=== PATIENT | female | born 1990 | race African-American/Black ===

== ENCOUNTER 2020-05-14 10:24 | Outpatient (REF) | payer OTHER, SELFPAY ==
[2020-05-16 19:52] LABS: TS Negative Control Passed; TS Panel A 0; TS Panel B 0; TS Positive Control Passed; TSpotTB Negative (SeeBelow)
== END 2020-05-14 10:25 | disposition home or self-care (01) ==
LOC: HO.HMGCLDS 10:24
PROVIDERS: PCP Internal Medicine; Visit Provider Internal Medicine
DX: Z01.84 Encounter for antibody response examination (principal)
CPT/HCPCS: 36415; 86481

== ENCOUNTER → 2021-01-29 10:59 | Outpatient (BNVA) | payer OTHER, SELFPAY | PROVIDERS: PCP Internal Medicine; Referring Provider Internal Medicine; Visit Provider Physician Assistant Surgical ==

== ENCOUNTER → 2021-02-06 08:13 | Outpatient (BNVA) | payer OTHER, SELFPAY | PROVIDERS: PCP Internal Medicine; Visit Provider Surgery ==

== ENCOUNTER 2021-02-08 09:58 | Outpatient (REF) | payer OTHER, SELFPAY ==
[2021-02-08 11:41] LABS: MANUAL DIFF FLAG NO
[2021-02-08 11:46] LABS: Basophils Percent Auto 0.4 % (0-2); Eosinophils Absolute Auto 0.2 X10*3/uL (0.0-0.4); Eosinophils Percent Auto 3.3 % (0-4); Hematocrit 40.8 % (37.0-47.0); Hemoglobin 13.2 g/dl (12.0-16.0); Imm Gran Abs Auto 0.01 X10*3/uL (0.00-0.03); Imm Gran Pct Auto 0.1 % (0.0-0.4); Lymphocytes Absolute Auto 2.1 X10*3/uL (1.2-4.9); Lymphocytes Percent Auto 29.7 % (20-40); Mean Corpuscular HGB Conc 32.4 g/dl (31.0-35.0); Mean Corpuscular Hemoglobin 28.4 pg (27.0-33.0); Mean Corpuscular Volume 87.7 fL (80.0-98.0); Mean Platelet Volume 10.2 fL (9.4-12.3); Monocytes Absolute Auto 0.5 X10*3/uL (0.1-1.2); Monocytes Percent Auto 7.7 % (2-11); Neutrophils Absolute Auto 4.1 x10*3/uL (2.0-8.3); Neutrophils Percent Auto 58.8 % (45-73); Platelet Count 359 X10*3/uL (160-400); Red Blood Count 4.65 X10*6/uL (4.20-5.50); Red Cell Distribution Width 12.7 % (11.0-16.0)
[2021-02-08 12:00] LABS: Alanine Aminotransferase 16 U/L (0-31); Albumin Level 4.3 g/dL (3.5-5.0); Alkaline Phosphatase 80 U/L (39-117); Anion Gap 10 (12-20); Aspartate Amino Transferase 16 U/L (5-31); Bilirubin Direct 0.2 mg/dL (0.0-0.5); Bilirubin Total 0.7 mg/dL (0.0-1.0); Blood Urea Nitrogen 6 mg/dL (9-16); Carbon Dioxide 28 mmol/L (22-29); Chloride 105 mmol/L (96-108); Estimated Glomerular Filt Rate > 60; Glucose Random 84 mg/dL (60-115); Potassium 4.3 mmol/L (3.3-5.1); Sodium 139 mmol/L (135-145); Total Protein 7.2 g/dL (6.5-8.0)
[2021-02-08 12:25] LABS: TSH reflex Free T4 0.55 uIU/mL (0.32-4.0)
[2021-02-09 14:31] LABS: LDL Cholesterol Direct 157 mg/dL (<100)
== END 2021-02-08 09:59 | disposition home or self-care (01) ==
LOC: HO.HMGCLDS 09:58
PROVIDERS: PCP Internal Medicine; Visit Provider Surgery
DX: Z00.01 Encounter for general adult medical examination with abnormal findings (principal); E66.01 Morbid (severe) obesity due to excess calories; E05.90 Thyrotoxicosis, unspecified without thyrotoxic crisis or storm; E78.00 Pure hypercholesterolemia, unspecified; R00.0 Tachycardia, unspecified
CPT/HCPCS: 36415; 80053; 82248; 83721; 84443; 85025

== ENCOUNTER 2021-02-13 09:05 | Outpatient (REF) | payer OTHER, SELFPAY ==
[2021-02-13 11:27] LABS: MANUAL DIFF FLAG NO
[2021-02-13 11:33] LABS: Basophils Percent Auto 0.2 % (0-2); Eosinophils Absolute Auto 0.1 X10*3/uL (0.0-0.4); Eosinophils Percent Auto 0.6 % (0-4); Hematocrit 40.8 % (37.0-47.0); Hemoglobin 13.3 g/dl (12.0-16.0); Imm Gran Abs Auto 0.02 X10*3/uL (0.00-0.03); Imm Gran Pct Auto 0.2 % (0.0-0.4); Lymphocytes Absolute Auto 1.9 X10*3/uL (1.2-4.9); Mean Corpuscular HGB Conc 32.6 g/dl (31.0-35.0); Mean Corpuscular Hemoglobin 28.9 pg (27.0-33.0); Mean Corpuscular Volume 88.5 fL (80.0-98.0); Mean Platelet Volume 10.1 fL (9.4-12.3); Monocytes Absolute Auto 0.7 X10*3/uL (0.1-1.2); Monocytes Percent Auto 7.3 % (2-11); Neutrophils Absolute Auto 7.2 x10*3/uL (2.0-8.3); Neutrophils Percent Auto 72.7 % (45-73); Platelet Count 381 X10*3/uL (160-400); Red Blood Count 4.61 X10*6/uL (4.20-5.50); Red Cell Distribution Width 13.1 % (11.0-16.0); White Blood Count 9.9 X10*3/uL (4.8-10.8)
[2021-02-13 11:47] LABS: Alanine Aminotransferase 17 U/L (0-31); Albumin Level 4.4 g/dL (3.5-5.0); Alkaline Phosphatase 78 U/L (39-117); Anion Gap 10 (12-20); Aspartate Amino Transferase 17 U/L (5-31); Bilirubin Total 0.8 mg/dL (0.0-1.0); Blood Urea Nitrogen 4 mg/dL (9-16); C Reactive Protein 1.41 mg/dL (< or = 0.50); Calcium 9.6 mg/dL (8.4-10.2); Carbon Dioxide 29 mmol/L (22-29); Chloride 105 mmol/L (96-108); Cholesterol 196 mg/dL; Estimated Glomerular Filt Rate > 60; Glucose Random 104 mg/dL (60-115); HDL Cholesterol 51 mg/dL; Iron 63 mcg/dL (30-160); LDL Cholesterol Calculated 131 mg/dl; Percent Iron Saturation 19 % (15-50); Potassium 4.1 mmol/L (3.3-5.1); Sodium 140 mmol/L (135-145); Total Iron Binding Capacity 324 mcg/dL (228-428); Total Protein 7.5 g/dL (6.5-8.0); Triglycerides 73 mg/dL; Unsaturated Iron Binding 261 ug/dL
[2021-02-13 11:50] LABS: Estimated Average Glucose 105 mg/dL; Hemoglobin A1c % 5.3 %
[2021-02-13 12:08] LABS: Ferritin 44 ng/mL (10-122); Insulin 15 uU/mL (2-29); TSH reflex Free T4 0.35 uIU/mL (0.32-4.0); Vitamin D 25-OH Total 21.8 ng/mL (>30)
[2021-02-13 12:21] LABS: Vitamin B12 322 pg/mL (200-900)
[2021-02-14 15:41] LABS: Calcium (PTHI) 9.6 mg/dL (8.6-10.2); PTHI 45 pg/mL (14-64)
[2021-02-16 14:01] LABS: Zinc 61 mcg/dL (60-130)
[2021-02-16 20:51] LABS: Vitamin A 34 mcg/dL (38-98)
[2021-02-18 06:12] LABS: Vitamin B1 8 nmol/L (8-30)
== END 2021-02-13 09:06 | disposition home or self-care (01) ==
LOC: HO.HMGCLDS 09:05
PROVIDERS: PCP Internal Medicine; Visit Provider Surgery
DX: E66.01 Morbid (severe) obesity due to excess calories (principal)
CPT/HCPCS: 36415; 80053; 80061; 82306; 82607; 82728; 82746; 83036; 83525; 83540; 83970; 84425; 84443; 84590; 84630; 85025; 86140

== ENCOUNTER → 2021-03-06 08:01 | Outpatient (BNVA) | payer OTHER, SELFPAY | PROVIDERS: PCP Internal Medicine; Visit Provider Surgery ==

== ENCOUNTER → 2021-03-12 08:03 | Outpatient (BNVA) | payer OTHER, SELFPAY | PROVIDERS: PCP Internal Medicine; Visit Provider Dietitian, Registered ==

== ENCOUNTER 2021-05-15 11:48 | Outpatient (REF) | payer OTHER, SELFPAY ==
[2021-05-17 16:06] LABS: TS Negative Control Passed; TS Panel A 0; TS Panel B 2; TS Positive Control Passed; TSpotTB Negative (Negative)
== END 2021-05-15 11:49 | disposition home or self-care (01) ==
LOC: HO.HMGCLDS 11:48
PROVIDERS: Visit Provider Internal Medicine
DX: Z11.1 Encounter for screening for respiratory tuberculosis (principal)
CPT/HCPCS: 36415; 86481

== ENCOUNTER 2021-11-15 13:04 | Outpatient (REF) | payer OTHER, SELFPAY ==
[2021-11-18 03:41] LABS: HBS Num1 107.91 mIU/mL (0-7.99); HBsAGNum1 0.23 S/CO (0.00-0.99); Hepatitis B Surface Antigen Negative (Negative); ~Hepatitis B Surface Antibody REACTIVE (Nonreactive)
[2021-11-18 18:11] LABS: Mumps Virus IgG Antibody <9.00 AU/mL; Rubella IgG Antibody 1.75 Index; Rubeola IgG (Measles) <13.50 AU/mL
== END 2021-11-15 13:05 | disposition home or self-care (01) ==
LOC: HO.HMGCLDS 13:04
PROVIDERS: PCP Internal Medicine; Visit Provider Internal Medicine
DX: Z01.84 Encounter for antibody response examination (principal)
CPT/HCPCS: 36415; 86706; 86735; 86762; 86765; 86787; 87340

== ENCOUNTER 2022-11-14 09:52 | Outpatient (AMB) | payer OTHER, SELFPAY ==
[2022-11-14 10:01] VITALS: BP 118/84; PULSE 90; O2SAT 98; BMI 39.5
--- NOTE | 2022-11-14 10:01 | A.OFFPC_ITS ---
Vital Signs 11/14/22 10:01 Height 5 ft 1 in Weight 209 lb 2 oz BMI 39.5 BP 118/84 Blood Pressure Location Lt brachial Position Sitting Pulse 90 Pulse Source Pulse Oximeter Pulse Oximetry (%) 98 Oxygen Delivery Method Room Air Intake Visit Reasons: Annual PE Allergies No Known Allergies Allergy (Verified 11/14/22 10:02) Medication List - Last Reconciled 11/14/22 by Yin Hayes MD escitalopram oxalate 10 mg PO DAILY 90 days Tobacco use date assessed: 11/14/22 Dental Screening Dental Screen Date: 11/14/22 Did you have a dental visit in the last 12 months?: Yes Did you have a dental problem in the last 6 months where you did not have access to dental care?: No Was dental information given to patient?: No HPI Annual PE HPI Details Patient is a 32-year-old female came in today for physical examination Patient offer no complaints today Obesity with BMI of 39.5, patient has tried weight loss program [facility] But she did not wanted to have surgery so she stopped going She also tried taking phentermine which caused tachycardia. I offered her appointment with the dietitian which she has declined today. She is still struggling with weight loss. Need OBGYN appointment Lab order placed to be done fasting Return in 2 weeks to go over labs. [facility] Medical History Depression Encounter for general adult medical examination with abnormal findings Hyperthyroidism Morbid obesity Tachycardia Surgical History History of section Family History Father Cancer Mother HTN (hypertension) Depression Maternal Grandfather No problems noted. Maternal Grandmother No problems noted. Paternal Grandfather No problems noted. Paternal Grandmother No problems noted. Brother No problems noted. Daughter No problems noted. Sister No problems noted. Sister No problems noted. Sister No problems noted. Other Mental health disorder Social History Housing: House Alcohol intake: current Alcohol intake frequency: holidays/special occasions only Patient Tobacco Use Status: Never used Tobacco e-Cigarette/Vaping Use: Never Used Second Hand Smoke Exposure: Yes Current occupational status: employed Cognitive needs: No Hearing needs: No Vision needs: Yes Questionnaire PHQ-9 Over the last 2 weeks, how often have you been bothered by any of the following problems? 1. Little interest or pleasure in doing things: several days 2. Feeling down, depressed, or hopeless: several days 3. Trouble falling or staying asleep, or sleeping too much: not at all 4. Feeling tired or having little energy: several days 5. Poor appetite or overeating: not at all 6. Feeling bad about yourself - or that you are a failure or have let yourself or your family down: not at all 7. Trouble concentrating on things, such as reading the newspaper or watching television: not at all 8. Moving or speaking so slowly that other people could have noticed. Or the opposite - being so fidgety or restless that you have been moving around a lot more than usual: several days 9. Thoughts that you would be better off or of hurting yourself in some way: not at all Total score: 4 Depression Screening Interpretation: Negative 47338 - PHQ-9 Billing: Yes Source: Developed by Drs. Mahesh Edward, Selina Nieves, Michael Santos and colleagues, with an educational desiree from [employer]. Thrive Questionnaire Date Thrive assessed: 11/14/22 I am a: Patient What is your living situation today?: I have a steady place to live Within the past 12 months, did the food you bought not last and you didn't have the money to get more?: Never true Within the past 12 months, did you worry whether your food would run out before you got money to buy more?: Never true Do you have trouble paying for medicines?: No Do you have trouble getting transportation to medical appointments?: No Do you have trouble paying your heating and electricity bill?: No Do you have trouble taking care of your child, family member or friend?: No Do you have trouble with day-to-day activities such as bathing, preparing meals, shopping, managing finances, etc.?: No Are you currently unemployed and looking for a job?: No Are you interested in more education?: No AUDIT C Alcohol Use Questionnaire (AUDIT-C) 1. How often do you have a drink containing alcohol?: 2-4 times a month 2. How many drinks containing alcohol do you have on a typical day when you are drinking?: 1 or 2 3. How often do you have six or more drinks on one occasion?: Never Total Score: 2 Score Reviewed/Action Taken: Yes RAKEL-7 AMB Questionnaire RAKEL-7 Date RAKEL - 7 assessed: 11/14/22 Feeling nervous, anxious, or on edge: 0 = Not at all Not being able to stop or control worryin = Not at all Worrying too much about different things: 0 = Not at all Trouble relaxin = Several days Being so restless that it is hard to sit still: 1 = Several days Becoming easily annoyed or irritable: 0 = Not at all Feeling afraid as if something awful might happen: 0 = Not at all Total RAKEL-7 score (0-4 normal; 5-9 mild; 10-14 moderate; 15-21 severe): 2 Source: Developed by Drs. Mahesh Edward, Selina Nieves, Michael Santos and colleagues, with an educational desiree from [employer]. RAKEL-7 Assessment Billing RAKEL-7 Assessment Tool: RAKEL-7 Assessment 19927 Review of Systems Const Denies chills, Denies fever(s) and Denies headache(s) Eyes Denies blurry vision ENT Denies headache(s), Denies nasal discharge, Denies nasal obstruction, Denies odynophagia and Denies sinus pain Card Denies chest pain at rest and Denies chest pain with activity Resp Denies cough and Denies hemoptysis GI Denies diarrhea, Denies odynophagia, Denies vomiting and Denies hematemesis Reports as per HPI Musc Denies abnormal gait Skin/Breast Reports as per HPI Neuro Denies Neuro-related abnormal movements, Denies Abnormal speech present, Denies abnormal gait, Denies headache(s) and Denies Sensory deficit (Neuro) Psych Denies mood swings and Denies paranoia Endo Reports as per HPI Jose/Lymph Reports as per HPI Aller/Immun Reports as per HPI Physical exam (Primary Care) Vital Signs: Last Vital Signs Pulse 90 11/14/22 10:01 BP 118/84 11/14/22 10:01 Pulse Ox 98 11/14/22 10:01 Oxygen Delivery Method Room Air 11/14/22 10:01 BMI result Body Mass Index 39.5 Tobacco/Smoking Status: Tobacco use Status Tobacco use date assessed 11/14/22 11/14/22 10:02 Patient Tobacco Use Status Never used Tobacco 11/14/22 10:02 e-Cigarette/Vaping Use Never Used 11/14/22 10:02 PHQ-9: PHQ-9 Score PHQ-9: Total score 4 11/14/22 10:20 Depression Screening Interpretation: Negative Thrive Assessment: Date of Thrive Assessment Date Thrive assessed 11/14/22 11/14/22 10:17 Const General: cooperative, comfortable and no acute distress Orientation/consciousness: patient oriented x3 HENMT Head: Yes normocephalic and Yes atraumatic Eyes General: appearance normal, both eyes and all related structures Pupils: Equal, round and reactive pupils present EOM: EOMs intact bilaterally Neck Neck: Yes supple and No lymphadenopathy Thyroid: Thyroid normal Lymphatic: no lymphadenopathy noted Chest Breast/axilla palpation: normal palpation of the breasts Resp Effort & Inspection: normal respiratory effort and able to speak in complete sentences Auscultation: clear to auscultation bilaterally Cardio Heart sounds: S1 normal heart sound present and S2 normal heart sound present GI Palpation (GI): Soft to palpation and nontender Auscultation: normal bowel sounds General: Yes no CVA tenderness Back/Spine/Pelvis Back: no CVA tenderness Skin General skin exam: elasticity normal and turgor normal Neuro General: patient oriented x3 and gait normal Cranial nerves: Yes Equal, round and reactive pupils present Speech: No Abnormal speech present Sensory Exam: No Sensory deficit (Neuro) Coordination: tandem gait normal and Romberg test negative Extrem General: Yes normal exam except as noted and No edema Assessment and Plan Assessment & Plan (1) Encounter for general adult medical examination with abnormal findings: Code(s): Z00.01 - Encounter for general adult medical examination with abnormal findings (2) Morbid obesity: Code(s): E66.01 - Morbid (severe) obesity due to excess calories (3) Elevated LDL cholesterol level: Code(s): E78.00 - Pure hypercholesterolemia, unspecified (4) Vitamin D deficiency: Code(s): E55.9 - Vitamin D deficiency, unspecified (5) Vitamin B12 deficiency: Code(s): E53.8 - Deficiency of other specified B group vitamins Plan Patient is a 32-year-old female came in today for physical examination Patient offer no complaints today Obesity with BMI of 39.5, patient has tried weight loss program [facility] But she did not wanted to have surgery so she stopped going She also tried taking phentermine which caused tachycardia. I offered her appointment with the dietitian which she has declined today. She is still struggling with weight loss. Need OBGYN appointment Lab order placed to be done fasting Return in 2 weeks to go over labs. Orders: Orders Comprehensive Gaffney. Panel Fast Today E53.8 - Deficiency of other specified B group vitamins, E55.9 - Vitamin D deficiency, unspecified, E66.01 - Morbid (severe) obesity due to excess calories, E78.00 - Pure hypercholesterolemia, u nspecified, Z00.01 - Encounter for general adult medical examination with abnormal findings Lipid Panel Today E53.8 - Deficiency of other specified B group vitamins, E55.9 - Vitamin D deficiency, unspecified, E66.01 - Morbid (severe) obesity due to excess calories, E78.00 - Pure hypercholesterolemia, unspecified, Z00.01 - Encounter for general adult medical examination with abnormal findings TSH reflex Free T4 Today E53.8 - Deficiency of other specified B group vitamins, E55.9 - Vitamin D deficiency, unspecified, E66.01 - Morbid (severe) obesity due to excess calories, E78.00 - Pure hypercholesterolemia, unspecified, Z00.01 - Encounter for general adult medical examination with abnormal findings Vitamin D 25-OH (D2 and D3) Today E53.8 - Deficiency of other specified B group vitamins, E55.9 - Vitamin D deficiency, unspecified, E66.01 - Morbid (severe) obesity due to excess calories, E78.00 - Pure hypercholesterolemia, unspecified, Z00.01 - Encounter for general adult medical examination with abnormal findings Complete Blood Count Auto Diff Today E53.8 - Deficiency of other specified B group vitamins, E55.9 - Vitamin D deficiency, unspecified, E66.01 - Morbid (severe) obesity due to excess calories, E78.00 - Pure hypercholesterolemia, unspecified, Z00.01 - Encounter for general adult medical examination with abnormal findings Vitamin B12 Today E53.8 - Deficiency of other specified B group vitamins Referrals RN TRANSITIONAL CARE Referral Z01.419 - Encounter for gynecological examination (general) (routine) without abnormal findings Coding Level of Care Code Est Pt Prev Care 18-39y(94342) Diagnoses Encounter for general adult medical examination with abnormal findings Z00.01 Morbid obesity E66.01 Elevated LDL cholesterol level E78.00 Vitamin D deficiency E55.9 Vitamin B12 deficiency E53.8 Additional Codes RAKEL-7 Assessment Billing - RAKEL-7 Assessment Tool: RAKEL-7 Assessment 70806 ([id number])
== END 2022-11-14 10:30 | disposition home or self-care (01) ==
PROVIDERS: PCP Internal Medicine; Visit Provider Internal Medicine
DX: Z00.01 Encounter for general adult medical examination with abnormal findings (principal); E66.01 Morbid (severe) obesity due to excess calories; E55.9 Vitamin D deficiency, unspecified; Z68.39 Body mass index [BMI] 39.0-39.9, adult; E78.00 Pure hypercholesterolemia, unspecified; E53.8 Deficiency of other specified B group vitamins
CPT/HCPCS: 99395

== ENCOUNTER 2022-11-17 08:09 | Outpatient (REF) | payer OTHER, SELFPAY ==
[2022-11-17 11:54] LABS: MANUAL DIFF FLAG NO
[2022-11-17 12:04] LABS: Basophils Percent Auto 0.4 % (0-2); Eosinophils Absolute Auto 0.3 X10*3/uL (0.0-0.4); Eosinophils Percent Auto 3.5 % (0-4); Hematocrit 38.7 % (37.0-47.0); Hemoglobin 12.5 g/dl (12.0-16.0); Imm Gran Abs Auto 0.02 X10*3/uL (0.00-0.03); Imm Gran Pct Auto 0.3 % (0.0-0.4); Lymphocytes Absolute Auto 2.2 X10*3/uL (1.2-4.9); Lymphocytes Percent Auto 30.4 % (20-40); Mean Corpuscular HGB Conc 32.3 g/dl (31.0-35.0); Mean Corpuscular Hemoglobin 28.3 pg (27.0-33.0); Mean Corpuscular Volume 87.8 fL (80.0-98.0); Monocytes Absolute Auto 0.6 X10*3/uL (0.1-1.2); Monocytes Percent Auto 8.1 % (2-11); Neutrophils Absolute Auto 4.2 x10*3/uL (2.0-8.3); Neutrophils Percent Auto 57.3 % (45-73); Platelet Count 343 X10*3/uL (160-400); Red Blood Count 4.41 X10*6/uL (4.20-5.50); Red Cell Distribution Width 12.8 % (11.0-16.0); White Blood Count 7.2 X10*3/uL (4.8-10.8)
[2022-11-17 12:58] LABS: Alanine Aminotransferase 15 U/L (0-31); Alkaline Phosphatase 64 U/L (39-117); Anion Gap 10 (12-20); Aspartate Amino Transferase 15 U/L (5-31); Bilirubin Total 0.6 mg/dL (0.0-1.0); Blood Urea Nitrogen 4 mg/dL (9-16); Calcium 9.4 mg/dL (8.4-10.2); Carbon Dioxide 25 mmol/L (22-29); Chloride 109 mmol/L (96-108); Cholesterol 192 mg/dL; Estimated Glomerular Filt Rate > 60; Glucose Fasting 92 mg/dL (60-99); HDL Cholesterol 51 mg/dL; LDL Cholesterol Calculated 129 mg/dl; Potassium 3.9 mmol/L (3.3-5.1); Sodium 140 mmol/L (135-145); TSH reflex Free T4 0.24 uIU/mL (0.32-4.0); Total Protein 7.3 g/dL (6.5-8.0); Triglycerides 60 mg/dL
[2022-11-17 13:04] LABS: Vitamin B12 340 pg/mL (200-900)
[2022-11-17 18:52] LABS: Free T4 (Free Thyroxine) 0.86 ng/dL (0.71-1.85)
[2022-11-21 14:54] LABS: Vitamin D 25-OH, D2 <4 ng/mL; Vitamin D 25-OH, D3 21 ng/mL; Vitamin D 25-OH, Total 21 ng/mL (30-100)
== END 2022-11-17 08:10 | disposition home or self-care (01) ==
LOC: HO.HMGCLDS 08:09
PROVIDERS: PCP Internal Medicine; Visit Provider Internal Medicine
DX: Z00.01 Encounter for general adult medical examination with abnormal findings (principal); E53.8 Deficiency of other specified B group vitamins; E66.01 Morbid (severe) obesity due to excess calories; E78.00 Pure hypercholesterolemia, unspecified; E55.9 Vitamin D deficiency, unspecified
CPT/HCPCS: 36415; 80053; 80061; 82306; 82607; 84439; 84443; 85025

== ENCOUNTER 2022-12-05 07:39 | Outpatient (AMB) | payer OTHER, SELFPAY ==
--- NOTE | 2022-12-05 07:37 | MHC.PC.OV ---
Intake Visit Reasons: 2 week follow up/CX 11/28/Go over labs Allergies No Known Allergies Allergy (Verified 12/05/22 07:37) Medication List - Last Reconciled 12/05/22 by Yin Hayes MD No Known Home Meds Tobacco use date assessed: 12/05/22 Dental Screening Dental Screen Date: 12/05/22 Did you have a dental visit in the last 12 months?: Yes Did you have a dental problem in the last 6 months where you did not have access to dental care?: Yes Was dental information given to patient?: Patient has dentist HPI 2 week follow up/CX 11/28/Go over labs HPI Details Patient is 32-year-old female this is a telemedicine video conference to go over labs She recently had labs done this month Her vitamin-D level is low I have sent supplement for that Her TSH level came back low as well, indicating hyperfunctioning of thyroid gland Explained the findings to patient She has appointment with [facility] however patient would like to change it to [facility]. New referral placed message sent to referral department. She continued to have excessive sweating it can also be because of hyperthyroidism Will wait until she see the dehydrator tender she has tried Drysol which did not help. [facility] Medical History Depression Encounter for general adult medical examination with abnormal findings Hyperthyroidism Morbid obesity Tachycardia Surgical History History of section Family History Father Cancer Mother HTN (hypertension) Depression Maternal Grandfather No problems noted. Maternal Grandmother No problems noted. Paternal Grandfather No problems noted. Paternal Grandmother No problems noted. Brother No problems noted. Daughter No problems noted. Sister No problems noted. Sister No problems noted. Sister No problems noted. Other Mental health disorder Social History Housing: House Alcohol intake: current Alcohol intake frequency: holidays/special occasions only Patient Tobacco Use Status: Never used Tobacco e-Cigarette/Vaping Use: Never Used Second Hand Smoke Exposure: Yes Current occupational status: employed Cognitive needs: No Hearing needs: No Vision needs: Yes Questionnaire Thrive Questionnaire Date Thrive assessed: 11/14/22 RAKEL-7 AMB Questionnaire RAKEL-7 Date RAKEL - 7 assessed: 11/14/22 Source: Developed by Drs. Mahesh Edward, Selina Nieves, Michael Santos and colleagues, with an educational desiree from [employer]. Review of Systems Const Denies chills and Denies fever(s) ENT Denies epistaxis and Denies nasal discharge Card Denies chest pain Resp Denies chest congestion, Denies cough and Denies hemoptysis GI Denies diarrhea and Denies nausea Skin/Breast Denies rash Neuro Reports no additional complaints Psych Reports no additional complaints Endo Reports no additional complaints Physical exam (Primary Care) Tobacco/Smoking Status: Tobacco use Status Tobacco use date assessed 12/05/22 12/05/22 07:38 Patient Tobacco Use Status Never used Tobacco 12/05/22 07:38 e-Cigarette/Vaping Use Never Used 12/05/22 07:38 Thrive Assessment: Date of Thrive Assessment Date Thrive assessed 11/14/22 12/05/22 07:38 Telehealth Telehealth Location of provider rendering services: practice address Location of patient: address on file Patient Identification confirmed using: Name, : Yes Telehealth method: video Patient verbally consented to treatment: Yes Patient verbally consented to billing insurance company: Yes Patient informed of any privacy concerns related to visit: Yes Minutes spent on Phone/Video with Pt.: 14 Assessment and Plan Assessment & Plan (1) Hyperthyroidism: Code(s): E05.90 - Thyrotoxicosis, unspecified without thyrotoxic crisis or storm (2) Vitamin D deficiency: Code(s): E55.9 - Vitamin D deficiency, unspecified Plan Patient is 32-year-old female this is a telemedicine video conference to go over labs She recently had labs done this month Her vitamin-D level is low I have sent supplement for that Her TSH level came back low as well, indicating hyperfunctioning of thyroid gland Explained the findings to patient She has appointment [facility] however patient would like to change it to [facility]. New referral placed message sent to referral department. She continued to have excessive sweating it can also be because of hyperthyroidism Will wait until she see the dehydrator tender she has tried Drysol which did not help. Medications: New cholecalciferol (vitamin D3) 25 mcg PO DAILY 90 caps 3RF 90 days Coding Level of Care Code Tele Est Pt Level 3 (48875) Diagnoses Hyperthyroidism E05.90 Vitamin D deficiency E55.9
== END 2022-12-05 09:50 | disposition home or self-care (01) ==
LOC: HO.HMGC 07:39
PROVIDERS: PCP Internal Medicine; Visit Provider Internal Medicine
DX: E05.90 Thyrotoxicosis, unspecified without thyrotoxic crisis or storm (principal); E55.9 Vitamin D deficiency, unspecified
CPT/HCPCS: 99213

== ENCOUNTER → 2023-02-09 10:06 | Outpatient (BNVA) | payer OTHER, SELFPAY | PROVIDERS: PCP Internal Medicine; Visit Provider Advanced Practice Midwife ==

== ENCOUNTER 2023-07-29 09:42 | Outpatient (REF) | payer OTHER, SELFPAY ==
[2023-07-29 17:52] LABS: CT PCR NOT DETECTED (Not Detect.); NG PCR NOT DETECTED (Not Detect.)
[2023-07-30 13:18] LABS: BV Int Neg Control Negative (Negative); BV Int Pos Control Positive (Positive)
[2023-08-04 06:49] LABS: HPV mRNA E6/E7 rflx Not Detected (Not Detected)
== END 2023-07-29 09:43 | disposition home or self-care (01) ==
LOC: HO.LNP 09:42
PROVIDERS: PCP Internal Medicine; Visit Provider Advanced Practice Midwife
DX: Z01.419 Encounter for gynecological examination (general) (routine) without abnormal findings (principal); Z11.51 Encounter for screening for human papillomavirus (HPV); Z20.2 Contact with and (suspected) exposure to infections with a predominantly sexual mode of transmission
CPT/HCPCS: 0353U; 87480; 87510; 87624; 87660; 88142

== ENCOUNTER 2023-07-29 09:42 | Outpatient (AMB) | payer OTHER, SELFPAY ==
--- NOTE | 2023-07-29 09:49 | MHC.OFFVIS ---
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 Intake Note: Having concerns about her IUD also had her period for 3 weeks Masking Machine Operator Required: No Information Interpreted: non-clinical & clinical Arcade Game Technician: Arcade Game Technician Present (Robin) Allergies No Known Allergies Allergy (Verified 07/29/23 09:52) Medication List - Last Reconciled 07/29/23 by Ana Luisa Mcknight CNM cholecalciferol (vitamin D3) 25 mcg PO DAILY 90 days levonorgestrel (Liletta) intrauterine Is last menstrual period known: Yes Last menstrual period: 07/06/23 Post menopausal: No HPI HPI 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 She had a hematoma after the but it is much better now it was abdominal. She has always gotten periods with the Liletta but in July she got unusual bleeding that lasted 3 weeks and some pelvic cramping and she was a little bit bloated. She needs Liletta for control she will want it replaced when it is due to be replaced she also wants to get checked for STDs. She is working on weight loss trying to eat healthier. [facility] Medical History Depression Morbid obesity Hyperthyroidism Tachycardia Encounter for general adult medical examination with abnormal findings Surgical History History of section Family History Father Cancer Mother HTN (hypertension) Depression Maternal Grandfather No problems noted. Maternal Grandmother No problems noted. Paternal Grandfather No problems noted. Paternal Grandmother No problems noted. Brother No problems noted. Daughter No problems noted. Sister No problems noted. Sister No problems noted. Sister No problems noted. Other Mental health disorder Social History Housing: House Alcohol intake: current Alcohol intake frequency: holidays/special occasions only Patient Tobacco Use Status: Never used Tobacco e-Cigarette/Vaping Use: Never Used Second Hand Smoke Exposure: Yes Current occupational status: employed Cognitive needs: No Hearing needs: No Vision needs: Yes Female Reproductive History Menstrual Age of Menarche: 12 Duration of menses: 8-10 days Date of last menstrual period: 07/06/23 control method: progestin IUCD Total pregnancies: 4 Full term: 2 Number of Living Children: 2 Ab induced: 2 History of abnormal pap smear: No Physical Exam Vital Signs: Last Vital Signs BP 110/74 07/29/23 09:50 BMI result Body Mass Index 42.5 Const General: healthy appearing, comfortable, no acute distress, well developed and alert Nutritional Appearance: average body habitus Orientation/consciousness: patient oriented x3 Limitations: no limitations HEENT Head: Yes normocephalic Neck Neck: Yes normal visual inspection Chest Chest palpation & inspection: normal inspection of the chest Breast/axilla inspection: normal inspection of the breasts and normal inspection of the axillae Breast/axilla palpation: normal palpation of the breasts and normal palpation of the axillae Resp Effort & Inspection: normal respiratory effort GI Inspection: Yes normal to inspection, No Abdominal wall edema and No distended Palpation (GI): Soft to palpation and nontender General: Yes bladder normal to palpation External Female Exam: normal external appearance and normal appearance of the urethra Speculum Exam - Vagina: normal appearance of the vagina, normal palpation and normal vaginal discharge Speculum Exam - Cervix: normal appearance of the cervix, normal palpation and nontender Bimanual exam- vagina & uterus: normal bimanual exam, normal palpation, uterine size normal, bladder normal to palpation, consistency normal, normal palpation, uterine mobility normal, uterine shape normal, No Cervical tenderness present, non-tender and no cervical motion tenderness Bimanual Exam- Adnexa, other: normal adnexae, no masses, normal and No adnexal tenderness Neuro General: patient oriented x3 Assessment & Plan Assessment & Plan (1) Morbid obesity: Code(s): E66.01 - Morbid (severe) obesity due to excess calories Category: Medical (2) Encounter for routine gynecological examination: Code(s): Z01.419 - Encounter for gynecological examination (general) (routine) without abnormal findings Category: Medical (3) Pelvic cramping: Code(s): R10.2 - Pelvic and perineal pain Category: Medical (4) Breakthrough bleeding associated with intrauterine device (IUD): Comment: has Liletta IUD she thinks was inserted March 2019 at [facility], . Code(s): N92.1 - Excessive and frequent menstruation with irregular cycle; Z97.5 - Presence of (intrauterine) contraceptive device Category: Medical (5) Cervical cancer screening: Code(s): Z12.4 - Encounter for screening for malignant neoplasm of cervix Category: Medical (6) Encounter for screening examination for sexually transmitted disease: Code(s): Z11.3 - Encounter for screening for infections with a predominantly sexual mode of transmission Category: Medical Plan -----Discussed in this visit the following: healthy balanced diet, regular and consistent exercise, getting recommended health screens, doing the best she can for her particular health concerns, kegel exercises, pap smear screening and followup recommendations, mammography screening and SBE, normal changes in cycles in her life stage--- . Reviewed the length of time the Liletta and Mirena are usually used for control and for other purposes reviewed the possibility that her irregular bleeding might be related to weight gain as she is being a lot of weight in the years since before having children. Reviewed that it can stay in possibly longer than 5 years but if she is very concerned about control replacing it in 5 years is fine. Because of her unusual bleeding pattern and the cramping we will schedule a pelvic ultrasound and she and I can review it after word it can be by telephone if everything is okay but been if everything is okay we plan on replacement with menses around the time it is due to be replaced if there is a problem with the placement of the IUD we will remove it earlier. And replace with Mirena Orders: Orders Hepatitis C Antibody Today Z11.3 - Encounter for screening for infections with a predominantly sexual mode of transmission HIV Ab/Ag Today Z11.3 - Encounter for screening for infections with a predominantly sexual mode of transmission Syphilis Screen Today Z11.3 - Encounter for screening for infections with a predominantly sexual mode of transmission US pelvic and transvaginal Today E66.01 - Morbid (severe) obesity due to excess calories, N92.1 - Excessive and frequent menstruation with irregular cycle, R10.2 - Pelvic and perineal pain, Z01.419 - Encounter for gynecological examination (general) (routine) without abnormal findings, Z11.3 - Encounter for screening for infections with a predominantly sexual mode of transmission, Z12.4 - Encounter for screening for malignant neoplasm of cervix, Z97.5 - Presence of (intrauterine) contraceptive device Hepatitis B Surface Antigen Today Z11.3 - Encounter for screening for infections with a predominantly sexual mode of transmission Coding Level of Care Code New Pt Prev Care 18-39yr([id number] Diagnoses Morbid obesity E66.01 Encounter for routine gynecological examination Z01.419 Pelvic cramping R10.2 Breakthrough bleeding associated with intrauterine device (IUD) N92.1; Z97.5 Cervical cancer screening Z12.4 Encounter for screening examination for sexually transmitted disease Z11.3
[2023-07-29 09:50] VITALS: BP 110/74; BMI 42.5
== END 2023-07-29 11:00 | disposition home or self-care (01) ==
PROVIDERS: PCP Internal Medicine; Visit Provider Advanced Practice Midwife
DX: Z01.419 Encounter for gynecological examination (general) (routine) without abnormal findings (principal); E66.01 Morbid (severe) obesity due to excess calories; R10.2 Pelvic and perineal pain; N92.1 Excessive and frequent menstruation with irregular cycle; Z97.5 Presence of (intrauterine) contraceptive device; Z12.4 Encounter for screening for malignant neoplasm of cervix; Z11.3 Encounter for screening for infections with a predominantly sexual mode of transmission
CPT/HCPCS: 99385

== ENCOUNTER 2023-12-23 13:45 | Outpatient (AMB) | payer OTHER, SELFPAY ==
[2023-12-23 13:49] VITALS: BP 128/86; PULSE 95; O2SAT 98; BMI 43.3
--- NOTE | 2023-12-23 13:49 | A.OFFPC_ITS ---
Vital Signs 12/23/23 13:49 Height 5 ft 1 in Weight 229 lb 2 oz BMI 43.3 BP 128/86 Blood Pressure Location Lt brachial Position Sitting Pulse 95 Pulse Source Pulse Oximeter Pulse Oximetry (%) 98 Oxygen Delivery Method Room Air Intake Visit Reasons: PE Allergies No Known Allergies Allergy (Verified 12/23/23 13:51) Medication List - Last Reconciled 12/23/23 by Yin Hayes MD levonorgestrel (Liletta) intrauterine Tobacco use date assessed: 12/23/23 Dental Screening Dental Screen Date: 12/23/23 Did you have a dental visit in the last 12 months?: Yes Did you have a dental problem in the last 6 months where you did not have access to dental care?: No Was dental information given to patient?: Patient has dentist HPI PE HPI Details Patient is a 33-year-old female came in for physical examination She is established with OBGYN for gynecological care Having difficulty losing weight, BMI is elevated Complaining of pain right heel, x-ray ordered to rule out heel spur patient would like to have a referral to foot doctor Lab order placed to be done fasting [facility] Medical History Depression Morbid obesity Hyperthyroidism Tachycardia Encounter for general adult medical examination with abnormal findings Surgical History History of section Family History Father Cancer Mother HTN (hypertension) Depression Maternal Grandfather No problems noted. Maternal Grandmother No problems noted. Paternal Grandfather No problems noted. Paternal Grandmother No problems noted. Brother No problems noted. Daughter No problems noted. Sister No problems noted. Sister No problems noted. Sister No problems noted. Other Mental health disorder Social History Housing: House Alcohol intake: current Alcohol intake frequency: holidays/special occasions only Patient Tobacco Use Status: Never used Tobacco e-Cigarette/Vaping Use: Never Used Second Hand Smoke Exposure: Yes Current occupational status: employed Cognitive needs: No Hearing needs: No Vision needs: Yes Female Reproductive History Menstrual Age of Menarche: 12 Questionnaire PHQ-9 Over the last 2 weeks, how often have you been bothered by any of the following problems? 1. Little interest or pleasure in doing things: several days 2. Feeling down, depressed, or hopeless: several days 3. Trouble falling or staying asleep, or sleeping too much: not at all 4. Feeling tired or having little energy: several days 5. Poor appetite or overeating: not at all 6. Feeling bad about yourself - or that you are a failure or have let yourself or your family down: not at all 7. Trouble concentrating on things, such as reading the newspaper or watching television: not at all 8. Moving or speaking so slowly that other people could have noticed. Or the opposite - being so fidgety or restless that you have been moving around a lot more than usual: several days 9. Thoughts that you would be better off or of hurting yourself in some way: not at all Total score: 4 Depression Screening Interpretation: Negative Depression Screening Done: Yes 78466 - PHQ-9 Billing: Yes Source: Developed by Drs. Mahesh Edward, Selina Nieves, Michael Santos and colleagues, with an educational desiree from [employer]. Thrive Questionnaire Date Thrive assessed: 12/23/23 I am a: Patient What is your living situation today?: I choose not to answer this question Within the past 12 months, did the food you bought not last and you didn't have the money to get more?: I choose not to answer this question Within the past 12 months, did you worry whether your food would run out before you got money to buy more?: I choose not to answer this question Do you have trouble paying for medicines?: I choose not to answer this question Do you have trouble getting transportation to medical appointments?: I choose not to answer this question Do you have trouble paying your heating and electricity bill?: I choose not to answer this question Do you have trouble taking care of your child, family member or friend?: I choose not to answer this question Do you have trouble with day-to-day activities such as bathing, preparing meals, shopping, managing finances, etc.?: I choose not to answer this question Are you interested in more education?: I choose not to answer this question Please select the resources that you would like help with: None Currently or been in a relationship where the following occur: I choose not to answer THRIVE Score: 0 AUDIT C Alcohol Use Questionnaire (AUDIT-C) 1. How often do you have a drink containing alcohol?: Monthly or less 2. How many drinks containing alcohol do you have on a typical day when you are drinking?: 1 or 2 3. How often do you have six or more drinks on one occasion?: Never Total Score: 1 Score Reviewed/Action Taken: Yes RAKEL-7 AMB Questionnaire RAKEL-7 Date RAKEL - 7 assessed: 12/23/23 Feeling nervous, anxious, or on edge: 0 = Not at all Not being able to stop or control worryin = Not at all Worrying too much about different things: 0 = Not at all Trouble relaxin = Not at all Being so restless that it is hard to sit still: 0 = Not at all Becoming easily annoyed or irritable: 0 = Not at all Feeling afraid as if something awful might happen: 0 = Not at all Total RAKEL-7 score (0-4 normal; 5-9 mild; 10-14 moderate; 15-21 severe): 0 Source: Developed by Drs. Mahesh Edward, Selina Nieves, Michael Santos and colleagues, with an educational desiree from [employer]. RAKEL-7 Assessment Billing RAKEL-7 Assessment Tool: RAKEL-7 Assessment 49567 Review of Systems Const Denies chills, Denies fever(s) and Denies headache(s) Eyes Denies blurry vision ENT Denies headache(s), Denies nasal discharge, Denies nasal obstruction, Denies odynophagia and Denies sinus pain Card Denies chest pain at rest and Denies chest pain with activity Resp Denies cough and Denies hemoptysis GI Denies diarrhea, Denies odynophagia, Denies vomiting and Denies hematemesis Reports as per HPI Musc Denies abnormal gait Skin/Breast Reports as per HPI Neuro Denies Neuro-related abnormal movements, Denies Abnormal speech present, Denies abnormal gait, Denies headache(s) and Denies Sensory deficit (Neuro) Psych Denies mood swings and Denies paranoia Endo Reports as per HPI Jose/Lymph Reports as per HPI Aller/Immun Reports as per HPI Physical exam (Primary Care) Vital Signs: Last Vital Signs Pulse 95 09/18/24 13:49 BP 128/86 12/23/23 13:49 Pulse Ox 98 12/23/23 13:49 Oxygen Delivery Method Room Air 12/23/23 13:49 BMI result Body Mass Index 43.3 Tobacco/Smoking Status: Tobacco use Status Tobacco use date assessed 12/23/23 12/23/23 13:52 Patient Tobacco Use Status Never used Tobacco 12/23/23 13:52 e-Cigarette/Vaping Use Never Used 12/23/23 13:52 PHQ-9: PHQ-9 Score PHQ-9: Total score 4 12/23/23 14:09 Depression Screening Interpretation: Negative Thrive Assessment: Date of Thrive Assessment Date Thrive assessed 12/23/23 12/23/23 13:52 Currently or been in a relationship where the following occur: I choose not to answer Const General: cooperative, comfortable and no acute distress Orientation/consciousness: patient oriented x3 HENMT Head: Yes normocephalic and Yes atraumatic Eyes General: appearance normal, both eyes and all related structures Pupils: Equal, round and reactive pupils present EOM: EOMs intact bilaterally Neck Neck: Yes supple and No lymphadenopathy Thyroid: Thyroid normal Lymphatic: no lymphadenopathy noted Resp Effort & Inspection: normal respiratory effort and able to speak in complete sentences Auscultation: clear to auscultation bilaterally Cardio Heart sounds: S1 normal heart sound present and S2 normal heart sound present GI Palpation (GI): Soft to palpation and nontender Auscultation: normal bowel sounds General: Yes no CVA tenderness Back/Spine/Pelvis Back: no CVA tenderness Skin General skin exam: elasticity normal and turgor normal Neuro General: patient oriented x3 and gait normal Cranial nerves: Yes Equal, round and reactive pupils present Speech: No Abnormal speech present Sensory Exam: No Sensory deficit (Neuro) Coordination: tandem gait normal and Romberg test negative Extrem General: Yes normal exam except as noted and No edema Assessment and Plan Assessment & Plan (1) Encounter for general adult medical examination with abnormal findings: Code(s): Z00.01 - Encounter for general adult medical examination with abnormal findings (2) Pain of right heel: Code(s): M79.671 - Pain in right foot (3) Morbid obesity: Code(s): E66.01 - Morbid (severe) obesity due to excess calories (4) Vitamin D deficiency: Code(s): E55.9 - Vitamin D deficiency, unspecified (5) Vitamin B12 deficiency: Code(s): E53.8 - Deficiency of other specified B group vitamins Plan Patient is a 33-year-old female came in for physical examination She is established with OBGYN for gynecological care Having difficulty losing weight, BMI is elevated Complaining of pain right heel, x-ray ordered to rule out heel spur patient would like to have a referral to foot doctor Lab order placed to be done fasting Orders: Orders Complete Blood Count Auto Diff Today E53.8 - Deficiency of other specified B group vitamins, E55.9 - Vitamin D deficiency, unspecified, E66.01 - Morbid (severe) obesity due to excess calories, M79.671 - Pain in right foot, Z00.01 - Encounter for general adult medical examination with abnormal findings Comprehensive [place]. Panel Fast Today E53.8 - Deficiency of other specified B group vitamins, E55.9 - Vitamin D deficiency, unspecified, E66.01 - Morbid (severe) obesity due to excess calories, M79.671 - Pain in right foot, Z00.01 - Encounter for general adult medical examination with abnormal findings TSH reflex Free T4 Today E53.8 - Deficiency of other specified B group vitamins, E55.9 - Vitamin D deficiency, unspecified, E66.01 - Morbid (severe) obesity due to excess calories, M79.671 - Pain in right foot, Z00.01 - Encounter for general adult medical examination with abnormal findings XR foot RT 2V Today M79.671 - Pain in right foot Lipid Panel Today E53.8 - Deficiency of other specified B group vitamins, E55.9 - Vitamin D deficiency, unspecified, E66.01 - Morbid (severe) obesity due to excess calories, M79.671 - Pain in right foot, Z00.01 - Encounter for general adult medical examination with abnormal findings UA CC w/rflx Micro + Cult Today E53.8 - Deficiency of other specified B group vitamins, E55.9 - Vitamin D deficiency, unspecified, E66.01 - Morbid (severe) obesity due to excess calories, M79.671 - Pain in right foot, Z00.01 - Encounter for general adult medical examination with abnormal findings Referrals Podiatry Referral M79.671 - Pain in right foot Coding Level of Care Code Est Pt Level 3 (30201) Est Pt Prev Care 18-39y(24979) Diagnoses Encounter for general adult medical examination with abnormal findings Z00.01 Pain of right heel M79.671 Morbid obesity E66.01 Vitamin D deficiency E55.9 Vitamin B12 deficiency E53.8 Additional Codes RAKEL-7 Assessment Billing - RAKEL-7 Assessment Tool: RAKEL-7 Assessment 37856 ([id number])
== END 2023-12-23 14:11 | disposition home or self-care (01) ==
PROVIDERS: PCP Internal Medicine; Visit Provider Internal Medicine
DX: Z00.01 Encounter for general adult medical examination with abnormal findings (principal); M79.671 Pain in right foot; E66.01 Morbid (severe) obesity due to excess calories; Z68.41 Body mass index [BMI] 40.0-44.9, adult; E55.9 Vitamin D deficiency, unspecified; E53.8 Deficiency of other specified B group vitamins

== ENCOUNTER → 2023-12-23 13:45 | Outpatient (BNVA) | payer OTHER, SELFPAY | PROVIDERS: PCP Internal Medicine; Visit Provider Internal Medicine | DX: Z00.01 Encounter for general adult medical examination with abnormal findings (principal); M79.671 Pain in right foot; E66.01 Morbid (severe) obesity due to excess calories; Z68.41 Body mass index [BMI] 40.0-44.9, adult; E55.9 Vitamin D deficiency, unspecified; E53.8 Deficiency of other specified B group vitamins | CPT/HCPCS: 96127 ==

== ENCOUNTER 2024-02-11 08:31 | Outpatient (AMB) | payer OTHER, SELFPAY ==
--- NOTE | 2024-02-11 09:05 | A.OFFPC_ITS ---
Intake Visit Reasons: talk about weight loss medication Allergies No Known Allergies Allergy (Verified 12/23/23 13:51) Medication List - Last Reconciled 02/11/24 by Yin Hayes MD levonorgestrel (Liletta) intrauterine Tobacco use date assessed: 12/23/23 Dental Screening Dental Screen Date: 12/23/23 HPI talk about weight loss medication HPI Details 33-year-old female who wanted to talk ab out semaglutide injection for weight loss Side effect of medication discussed with the patient I have sent script, patient was notified that it may not be covered If it is covered and she is able to pick it up she will book an appointment And come into the office so we can teach her how to administer She also has not done labs yet, reminded patient to do them [facility] Medical History Depression Morbid obesity Hyperthyroidism Tachycardia Encounter for general adult medical examination with abnormal findings Surgical History History of section Family History Father Cancer Mother HTN (hypertension) Depression Maternal Grandfather No problems noted. Maternal Grandmother No problems noted. Paternal Grandfather No problems noted. Paternal Grandmother No problems noted. Brother No problems noted. Daughter No problems noted. Sister No problems noted. Sister No problems noted. Sister No problems noted. Other Mental health disorder Social History Housing: House Alcohol intake: current Alcohol intake frequency: holidays/special occasions only Patient Tobacco Use Status: Never used Tobacco e-Cigarette/Vaping Use: Never Used Second Hand Smoke Exposure: Yes Current occupational status: employed Cognitive needs: No Hearing needs: No Vision needs: Yes Female Reproductive History Menstrual Age of Menarche: 12 Questionnaire Thrive Questionnaire Date Thrive assessed: 12/23/23 RAKEL-7 AMB Questionnaire RAKEL-7 Date RAKEL - 7 assessed: 12/23/23 Source: Developed by Drs. Mahesh Edward, Seilna Nieves, Michael Santos and colleagues, with an educational desiree from [employer]. Review of Systems Const Denies chills and Denies fever(s) ENT Denies epistaxis and Denies nasal discharge Card Denies chest pain Resp Denies chest congestion, Denies cough and Denies hemoptysis GI Denies diarrhea and Denies nausea Skin/Breast Denies rash Neuro Reports no additional complaints Psych Reports no additional complaints Endo Reports no additional complaints Physical exam (Primary Care) Tobacco/Smoking Status: Tobacco use Status Tobacco use date assessed 12/23/23 02/11/24 09:06 Patient Tobacco Use Status Never used Tobacco 02/11/24 09:06 e-Cigarette/Vaping Use Never Used 02/11/24 09:06 Thrive Assessment: Date of Thrive Assessment Date Thrive assessed 12/23/23 02/11/24 09:06 Telehealth Telehealth Telehealth Platform: [employer] Location of provider rendering services: practice address Location of patient: address on file Patient Identification confirmed using: Name, : Yes Telehealth method: voice only Patient verbally consented to treatment: Yes Patient verbally consented to billing insurance company: Yes Patient informed of any privacy concerns related to visit: Yes Minutes spent on Phone/Video with Pt.: 13 Coding Level of Care Code Tele Est Pt Level 3 (57080) Diagnoses Morbid obesity E66.01 Assessment & Plan Assessment & Plan (1) Morbid obesity: Code(s): E66.01 - Morbid (severe) obesity due to excess calories Category: Medical Plan 33-year-old female who wanted to talk about semaglutide injection for weight loss Side effect of medication discussed with the patient I have sent script, patient was notified that it may not be covered If it is covered and she is able to pick it up she will book an appointment And come into the office so we can teach her how to administer She also has not done labs yet, reminded patient to do them Medications: New semaglutide (weight loss) (Wegovy) administer weeks 1 through 4 of therapy 0.25 mg (0.5 mL) subcut QWEEK 2 mL 0RF E66.01 - Morbid (severe) obesity due to excess calories, R00.0 - Tachycardia, unspecified
== END 2024-02-11 12:05 | disposition home or self-care (01) ==
LOC: HO.HMCC 08:31
PROVIDERS: PCP Internal Medicine; Visit Provider Internal Medicine
DX: E66.01 Morbid (severe) obesity due to excess calories (principal)

== ENCOUNTER 2024-02-11 08:31 | Outpatient (REF) | payer OTHER, SELFPAY ==
[2024-02-11 13:20] LABS: Appearance Urine Clear; Color Urine Yellow; Glucose Urine UA Negative (Negative); Leukocyte Esterase Urine Negative (Negative); Nitrite Urine Negative (Negative); PH 6.5 (5.0-9.0); Urine Blood Negative (Negative); Urine Ketones Trace mg/dL (Negative); Urine Protein Negative (Neg-Trace)
[2024-02-11 13:29] LABS: MANUAL DIFF FLAG NO
[2024-02-11 13:35] LABS: Basophils Percent Auto 0.5 % (0-2); Eosinophils Absolute Auto 1.3 X10*3/uL (0.0-0.4); Eosinophils Percent Auto 16.4 % (0-4); Hematocrit 39.2 % (37.0-47.0); Hemoglobin 12.8 g/dl (12.0-16.0); Imm Gran Abs Auto 0.02 X10*3/uL (0.00-0.03); Imm Gran Pct Auto 0.2 % (0.0-0.4); Lymphocytes Absolute Auto 2.2 X10*3/uL (1.2-4.9); Lymphocytes Percent Auto 27.7 % (20-40); Mean Corpuscular HGB Conc 32.7 g/dl (31.0-35.0); Mean Corpuscular Hemoglobin 28.5 pg (27.0-33.0); Mean Corpuscular Volume 87.3 fL (80.0-98.0); Mean Platelet Volume 9.9 fL (9.4-12.3); Monocytes Absolute Auto 0.7 X10*3/uL (0.1-1.2); Monocytes Percent Auto 8.3 % (2-11); Neutrophils Absolute Auto 3.8 x10*3/uL (2.0-8.3); Neutrophils Percent Auto 46.9 % (45-73); Platelet Count 396 X10*3/uL (160-400); Red Blood Count 4.49 X10*6/uL (4.20-5.50); Red Cell Distribution Width 13.5 % (11.0-16.0); White Blood Count 8.1 X10*3/uL (4.8-10.8)
[2024-02-11 14:04] LABS: Alanine Aminotransferase 14 U/L (0-31); Albumin Level 4.1 g/dL (3.5-5.0); Alkaline Phosphatase 74 U/L (39-117); Anion Gap 11 (12-20); Aspartate Amino Transferase 24 U/L (5-31); Bilirubin Total 0.7 mg/dL (0.0-1.0); Blood Urea Nitrogen 4 mg/dL (9-16); Calcium 9.5 mg/dL (8.4-10.2); Carbon Dioxide 25 mmol/L (22-29); Chloride 106 mmol/L (96-108); Cholesterol 222 mg/dL (<200); Estimated Glomerular Filt Rate > 60; Glucose Fasting 93 mg/dL (60-99); HDL Cholesterol 62 mg/dL (>40); LDL Cholesterol Calculated 147 mg/dL (<100); Potassium 3.9 mmol/L (3.3-5.1); Sodium 138 mmol/L (135-145); Total Protein 7.7 g/dL (6.5-8.0); Triglycerides 66 mg/dL (<150)
[2024-02-11 14:17] LABS: TSH reflex Free T4 0.51 uIU/mL (0.32-4.0)
== END 2024-02-11 08:32 | disposition home or self-care (01) ==
LOC: HO.HMGCLDS 08:31
PROVIDERS: PCP Internal Medicine; Visit Provider Internal Medicine
DX: Z00.01 Encounter for general adult medical examination with abnormal findings (principal); E66.01 Morbid (severe) obesity due to excess calories; E55.9 Vitamin D deficiency, unspecified; E53.8 Deficiency of other specified B group vitamins; M79.671 Pain in right foot; E05.90 Thyrotoxicosis, unspecified without thyrotoxic crisis or storm
CPT/HCPCS: 36415; 80053; 80061; 81003; 84443; 85025

== ENCOUNTER 2024-02-17 11:45 | Outpatient (AMB) | payer OTHER, SELFPAY ==
[2024-02-17 11:49] VITALS: BP 118/74; PULSE 100; O2SAT 100; BMI 42.5
--- NOTE | 2024-02-17 11:49 | MHC.PC.OV ---
Vital Signs 02/17/24 11:49 Height 5 ft 1 in Weight 225 lb BMI 42.5 BP 118/74 Blood Pressure Location Rt brachial Position Sitting Pulse 100 Pulse Source Pulse Oximeter Pulse Oximetry (%) 100 Oxygen Delivery Method Room Air Intake Visit Reasons: Weight med visit Allergies phentermine Adverse Reaction (Intermediate, Verified 02/17/24 11:58) Palpitations Medication List - Last Reconciled 02/17/24 by Yin Hayes MD levonorgestrel (Liletta) intrauterine semaglutide (weight loss) (Wegovy) 0.25 mg (0.5 mL) subcut QWEEK Tobacco use date assessed: 02/17/24 Dental Screening Dental Screen Date: 12/23/23 HPI Weight med visit HPI Details Patient is a 33-year-old female with BMI of 42 wanted to be started on Wegovy injections Came today to go over labs Lab values reviewed with the patient Vitamin-D level is low I have sent supplement for that Wegovy was not approved by her insurance and requires prior authorization We are looking into it Patient has tried phentermine in the past and could not tolerate because of palpitations Further management after the approval off medication [facility] Medical History Depression Morbid obesity Hyperthyroidism Tachycardia Encounter for general adult medical examination with abnormal findings Surgical History History of section Family History Father Cancer Mother HTN (hypertension) Depression Maternal Grandfather No problems noted. Maternal Grandmother No problems noted. Paternal Grandfather No problems noted. Paternal Grandmother No problems noted. Brother No problems noted. Daughter No problems noted. Sister No problems noted. Sister No problems noted. Sister No problems noted. Other Mental health disorder Social History Housing: House Alcohol intake: current Alcohol intake frequency: holidays/special occasions only Patient Tobacco Use Status: Never used Tobacco e-Cigarette/Vaping Use: Never Used Second Hand Smoke Exposure: Yes Current occupational status: employed Cognitive needs: No Hearing needs: No Vision needs: Yes Female Reproductive History Menstrual Age of Menarche: 12 Questionnaire PHQ-9 Over the last 2 weeks, how often have you been bothered by any of the following problems? 1. Little interest or pleasure in doing things: not at all Source: Developed by Drs. Mahesh Edward, Selina Nieves, Michael Santos and colleagues, with an educational desiree from [employer]. Thrive Questionnaire Date Thrive assessed: 12/23/23 I am a: Patient What is your living situation today?: I choose not to answer this question Within the past 12 months, did the food you bought not last and you didn't have the money to get more?: I choose not to answer this question Within the past 12 months, did you worry whether your food would run out before you got money to buy more?: I choose not to answer this question Do you have trouble paying for medicines?: I choose not to answer this question Do you have trouble getting transportation to medical appointments?: I choose not to answer this question Do you have trouble paying your heating and electricity bill?: I choose not to answer this question Do you have trouble taking care of your child, family member or friend?: I choose not to answer this question Do you have trouble with day-to-day activities such as bathing, preparing meals, shopping, managing finances, etc.?: I choose not to answer this question Are you currently unemployed and looking for a job?: No Are you interested in more education?: I choose not to answer this question Please select the resources that you would like help with: None Currently or been in a relationship where the following occur: I choose not to answer THRIVE Score: 0 RAKEL-7 AMB Questionnaire RAKEL-7 Date RAKEL - 7 assessed: 12/23/23 Source: Developed by Drs. Mahesh Edward, Selina Nieves, Michael Santos and colleagues, with an educational desiree from [employer]. Review of Systems Const Denies chills and Denies fever(s) ENT Denies epistaxis and Denies nasal discharge Card Denies chest pain Resp Denies chest congestion, Denies cough and Denies hemoptysis GI Denies diarrhea and Denies nausea Skin/Breast Denies rash Neuro Reports no additional complaints Psych Reports no additional complaints Endo Reports no additional complaints Physical exam (Primary Care) Vital Signs: Last Vital Signs Pulse 100 02/17/24 11:49 BP 118/74 02/17/24 11:49 Pulse Ox 100 02/17/24 11:49 Oxygen Delivery Method Room Air 02/17/24 11:49 BMI result Body Mass Index 42.5 Tobacco/Smoking Status: Tobacco use Status Tobacco use date assessed 02/17/24 02/17/24 11:54 Patient Tobacco Use Status Never used Tobacco 02/17/24 11:54 e-Cigarette/Vaping Use Never Used 02/17/24 11:54 Thrive Assessment: Date of Thrive Assessment Date Thrive assessed 12/23/23 02/17/24 11:54 Currently or been in a relationship where the following occur: I choose not to answer Const General: cooperative, comfortable and no acute distress Orientation/consciousness: patient oriented x3 HENMT Head: Yes normocephalic Eyes General: appearance normal, both eyes and all related structures Neck Neck: Yes supple Resp Effort & Inspection: normal respiratory effort, no cough and no stridor Cardio Rhythm: regular rhythm Heart sounds: S1 normal heart sound present and S2 normal heart sound present Skin General skin exam: turgor normal Neuro General: patient oriented x3, tone normal and moves all extremities Extrem Right lower extremity: no edema Left lower extremity: no edema Coding Level of Care Code Est Pt Level 3 (40592) Diagnoses Morbid obesity E66.01 Vitamin D deficiency E55.9 Assessment & Plan Assessment & Plan (1) Morbid obesity: Code(s): E66.01 - Morbid (severe) obesity due to excess calories Category: Medical (2) Vitamin D deficiency: Code(s): E55.9 - Vitamin D deficiency, unspecified Category: Medical Plan Patient is a 33-year-old female with BMI of 42 wanted to be started on Wegovy injections Came today to go over labs Lab values reviewed with the patient Vitamin-D level is low I have sent supplement for that Wegovy was not approved by her insurance and requires prior authorization We are looking into it Patient has tried phentermine in the past and could not tolerate because of palpitations Further management after the approval off medication Medications: New cholecalciferol (vitamin D3) 25 mcg PO DAILY 90 caps 1RF 90 days
== END 2024-02-17 15:47 | disposition home or self-care (01) ==
PROVIDERS: PCP Internal Medicine; Visit Provider Internal Medicine
DX: E55.9 Vitamin D deficiency, unspecified (principal); E66.01 Morbid (severe) obesity due to excess calories; Z68.41 Body mass index [BMI] 40.0-44.9, adult

== ENCOUNTER → 2024-02-17 11:45 | Outpatient (BNVA) | payer OTHER, SELFPAY | PROVIDERS: PCP Internal Medicine; Visit Provider Internal Medicine ==

== ENCOUNTER 2024-05-07 09:14 | Outpatient (AMB) | payer OTHER, SELFPAY ==
[2024-05-07 09:21] VITALS: BP 118/70; PULSE 78; TEMP 36.9; O2SAT 98; BMI 42.5
--- NOTE | 2024-05-07 09:21 | AM.OFFWIN_ITS ---
Intake Vital Signs 05/07/24 09:21 Height 5 ft 1 in Weight 225 lb BMI 42.5 BP 118/70 Blood Pressure Location Lt brachial Position Sitting Pulse 78 Pulse Source Pulse Oximeter Temp 98.5 F Temp Source Oral Pulse Oximetry (%) 98 Intake Visit Reasons: EP-HINES, ear clog several days Intake Note: pt is here for bilat ears blocked Patient Tobacco Use Status: Never used Tobacco Allergies phentermine Adverse Reaction (Intermediate, Verified 05/07/24 09:29) Palpitations Medication List - Last Reconciled 05/07/24 by Jasmyn Abernathy, [facility]- cholecalciferol (vitamin D3) 25 mcg PO DAILY 90 days levonorgestrel (Liletta) intrauterine semaglutide (weight loss) (Wegovy) 0.25 mg (0.5 mL) subcut QWEEK Do you need a note to return to daycare/school/sports/work: No HPI HPI Comments History of Present Illness Details History of Present Illness The patient is a 34-year-old female presenting with complaints of her ears feeling clogged for several days, accompanied by headaches. She reports no fever or chills currently but mentions having had symptoms of a cold the previous week, including congestion. Despite some improvement in her overall condition, the sensation of ear blockage persists. She has not experienced significant pain in the ears since the initial symptomatic episode but describes hearing difficulties. The patient attempted symptomatic relief by taking Tylenol, which proved ineffective. Physical Exam General: Awake, alert. No apparent distress Eyes: Sclera and conjunctiva clear bilaterally Nose: Nares patent, turbinates within normal limits, no sinus tenderness with palpation bilaterally Ears: Tympanic membranes with fluid bubbles bilaterally, ear canals clear with no earwax Respiratory: Speaking in full sentences Discussion Notes I explained to the patient the likely mechanism behind her symptoms, which appears to be Eustachian Tube Dysfunction resulting from a prior upper respiratory infection leading to fluid accumulation behind the eardrums. I assur ed her there is no indication of ear infection. A nasal spray was recommended to alleviate symptoms by promoting nasal decongestion, with an estimated duration of several weeks before significant improvement might be noticed. I emphasized the importance of using the spray consistently, clarifying insurance coverage and availability both by prescription and [id number]. Follow-up with her primary care provider was suggested to ensure the issue resolves appropriately and to provide continued monitoring of her condition. Patient Instructions - Use the nasal spray as directed, one s pray in each nostril twice daily. - Be aware that the sensation of blocked ears may persist for a few weeks; contact your healthcare provider if your symptoms worsen. - Follow up with your primary care jose manueli mojgan, Dr. Aguilar, for ongoing management. - If purchasing [id number] nasal s pray, check availability at local [facility]. Plan - Initiate treatment with a nasal decong estant spray to reduce Eustachian Tube Dysfunction and associated ear congestion. - Advise patient to follow up with her [facility] care provider for further evaluation if symptoms do not resolve or if they worsen. Patient was informed and verbally consented to the use of an ambient scribe for clinic note documentation during this visit. [facility] Medical History Depression Morbid obesity Hyperthyroidism Tachycardia Encounter for general adult medical examination with abnormal findings Surgical History History of section Family History Father Cancer Mother HTN (hypertension) Depression Maternal Grandfather No problems noted. Maternal Grandmother No problems noted. Paternal Grandfather No problems noted. Paternal Grandmother No problems noted. Brother No problems noted. Daughter No problems noted. Sister No problems noted. Sister No problems noted. Sister No problems noted. Other Mental health disorder Social History Housing: House Alcohol intake: current Alcohol intake frequency: holidays/special occasions only Patient Tobacco Use Status: Never used Tobacco e-Cigarette/Vaping Use: Never Used Second Hand Smoke Exposure: Yes Current occupational status: employed Cognitive needs: No Hearing needs: No Vision needs: Yes Female Reproductive History Menstrual Age of Menarche: 12 Physical Exam Vital Signs: Last Vital Signs Temp 98.5 F 05/07/24 09:21 Pulse 78 05/07/24 09:21 BP 118/70 05/07/24 09:21 Pulse Ox 98 05/07/24 09:21 BMI result Body Mass Index 42.5 Assessment & Plan Assessment & Plan (1) ETD (eustachian tube dysfunction): Code(s): H69.90 - Unspecified Eustachian tube disorder, unspecified ear Qualifiers: Laterality: bilateral Qualified Code(s): H69.93 - Unspecified Eustachian tube disorder, bilateral Plan . Medications: New fluticasone propionate 50 mcg/actuation administer into each nostril 1 spray intranasal BID 16 grams 0RF Coding Level of Care Code Est Pt Level 3 (05935) Diagnoses Dysfunction of both eustachian tubes H69.93 Laterality: bilateral
== END 2024-05-07 09:38 | disposition home or self-care (01) ==
PROVIDERS: PCP Internal Medicine; Visit Provider Nurse Practitioner Family
DX: H69.93 Unspecified Eustachian tube disorder, bilateral (principal)

== ENCOUNTER → 2024-05-07 09:14 | Outpatient (BNVA) | payer OTHER, SELFPAY | PROVIDERS: PCP Internal Medicine ==

== ENCOUNTER 2024-05-13 09:29 | Outpatient (AMB) | payer OTHER, SELFPAY ==
[2024-05-13 09:32] VITALS: BP 118/72; PULSE 107; O2SAT 99; BMI 42.8
--- NOTE | 2024-05-13 09:32 | MHC.PC.OV ---
Vital Signs 05/13/24 09:32 Height 5 ft 1 in Weight 226 lb 8 oz BMI 42.8 BP 118/72 Blood Pressure Location Lt brachial Position Sitting Pulse 107 H Pulse Source Pulse Oximeter Pulse Oximetry (%) 99 Oxygen Delivery Method Room Air Intake Visit Reasons: follow up/reschedule Allergies phentermine Adverse Reaction (Intermediate, Verified 05/13/24 09:32) Palpitations Medication List - Last Reconciled 05/13/24 by Yin Hayes MD fluticasone propionate 50 mcg/actuation 1 spray intranasal BID levonorgestrel (Liletta) intrauterine semaglutide (weight loss) (Wegovy) 0.25 mg (0.5 mL) subcut QWEEK Tobacco use date assessed: 05/13/24 Dental Screening Dental Screen Date: 05/13/24 Did you have a dental visit in the last 12 months?: Yes Did you have a dental problem in the last 6 months where you did not have access to dental care?: No Was dental information given to patient?: Patient has dentist HPI follow up/reschedule HPI Details - The patient is a 34-year-old female presenting with follow-up for obesity management. - She initiated semaglutide treatment in March and completed one month of therapy. - The patient reports no substantial weight loss and highlights the necessity of exercise in her regimen. - She also reports ear fullness. she was seen for that on may 07 at walk [facility] clinic and nasal spray was given still have the feeling but getting better Problem List - Primary Obesity - Eustachian Tube Dysfunction Patient Instructions - Continue taking semaglutide at a dose of 0.25 mg. - Contact the office for dose adjustment to 0.5 mg after one month. - Maintain an active lifestyle and incorporate regular exercise into your routine. - Continue using the prescribed nasal spray as needed for ear fullness and headaches. - Monitor for any worsening symptoms, such as cough, green phlegm, or nausea, and seek care if they occur. - Book an appointment in six weeks for follow-up and evaluation of dosage adjustment and weight progress. - If needed for work absence, obtain a doctor's note for 05/07/14. Review of Systems - General: No fever no chills - Neurological: no dizziness - Ear nose throat: No sore throat no hearing difficulty no ear pain - Cardiovascular: No syncope, no chest pain, no palpitations - Gastrointestinal: No nausea vomiting or diarrhea - Endocrine: No polyuria polydipsia no heat intolerance - Genitourinary: No dysuria , no blood in urine Physical Exam General: No acute distress HEENT: No acute findings, patient reports previous migraines and clogged ears, currently using nasal spray Neck: Supple Respiratory system: Able to talk in full sentences, no audible wheeze cardiovascular: S1-S2 regular in rate and rhythm Gastrointestinal: No pain Extremities: No new findings FISH HEADER: Alert awake oriented x3 motor sensory intact Skin: Normal turgor [facility] Medical History Depression Morbid obesity Hyperthyroidism Tachycardia Encounter for general adult medical examination with abnormal findings Surgical History History of section Family History Father Cancer Mother HTN (hypertension) Depression Maternal Grandfather No problems noted. Maternal Grandmother No problems noted. Paternal Grandfather No problems noted. Paternal Grandmother No problems noted. Brother No problems noted. Daughter No problems noted. Sister No problems noted. Sister No problems noted. Sister No problems noted. Other Mental health disorder Social History Housing: House Alcohol intake: current Alcohol intake frequency: holidays/special occasions only Patient Tobacco Use Status: Never used Tobacco e-Cigarette/Vaping Use: Never Used Second Hand Smoke Exposure: Yes Current occupational status: employed Cognitive needs: No Hearing needs: No Vision needs: Yes Female Reproductive History Menstrual Age of Menarche: 12 Questionnaire PHQ-9 Over the last 2 weeks, how often have you been bothered by any of the following problems? 1. Little interest or pleasure in doing things: not at all 2. Feeling down, depressed, or hopeless: not at all 3. Trouble falling or staying asleep, or sleeping too much: not at all 4. Feeling tired or having little energy: several days 5. Poor appetite or overeating: several days 6. Feeling bad about yourself - or that you are a failure or have let yourself or your family down: not at all 7. Trouble concentrating on things, such as reading the newspaper or watching television: several days 8. Moving or speaking so slowly that other people could have noticed. Or the opposite - being so fidgety or restless that you have been moving around a lot more than usual: not at all 9. Thoughts that you would be better off or of hurting yourself in some way: not at all Total score: 3 Depression Screening Interpretation: Negative Depression Screening Done: Yes 49952 - PHQ-9 Billing: Yes Source: Developed by Drs. Mahesh Edward, Selina Nieves, Michael Santos and colleagues, with an educational desiree from [employer]. Thrive Questionnaire Date Thrive assessed: 05/13/24 I am a: Patient What is your living situation today?: I have a steady place to live Within the past 12 months, did the food you bought not last and you didn't have the money to get more?: Never true Within the past 12 months, did you worry whether your food would run out before you got money to buy more?: Never true Do you have trouble paying for medicines?: No Do you have trouble getting transportation to medical appointments?: No Do you have trouble paying your heating and electricity bill?: No Do you have trouble taking care of your child, family member or friend?: No Do you have trouble with day-to-day activities such as bathing, preparing meals, shopping, managing finances, etc.?: No Are you currently unemployed and looking for a job?: I choose not to answer this question Are you interested in more education?: No Please select the resources that you would like help with: None Currently or been in a relationship where the following occur: No concerns reported THRIVE Score: 0 AUDIT C Alcohol Use Questionnaire (AUDIT-C) 1. How often do you have a drink containing alcohol?: Never 3. How often do you have six or more drinks on one occasion?: Never Total Score: 0 Score Reviewed/Action Taken: Yes RAKEL-7 AMB Questionnaire RAKEL-7 Date RAKEL - 7 assessed: 05/13/24 Feeling nervous, anxious, or on edge: 1 = Several days Not being able to stop or control worryin = Several days Worrying too much about different things: 1 = Several days Trouble relaxin = Not at all Being so restless that it is hard to sit still: 0 = Not at all Becoming easily annoyed or irritable: 0 = Not at all Feeling afraid as if something awful might happen: 0 = Not at all Total RAKEL-7 score (0-4 normal; 5-9 mild; 10-14 moderate; 15-21 severe): 3 Source: Developed by Drs. Mahesh Edward, Selina Nieves, Michael Santos and colleagues, with an educational desiree from [employer]. RAKEL-7 Assessment Billing RAKEL-7 Assessment Tool: RAKEL-7 Assessment 82468 Physical exam (Primary Care) Vital Signs: Last Vital Signs Pulse 107 H 05/13/24 09:32 BP 118/72 05/13/24 09:32 Pulse Ox 99 05/13/24 09:32 Oxygen Delivery Method Room Air 05/13/24 09:32 BMI result Body Mass Index 42.8 Tobacco/Smoking Status: Tobacco use Status Tobacco use date assessed 05/13/24 05/13/24 09:39 Patient Tobacco Use Status Never used Tobacco 05/13/24 09:39 e-Cigarette/Vaping Use Never Used 05/13/24 09:39 PHQ-9: PHQ-9 Score PHQ-9: Total score 3 05/13/24 09:39 Depression Screening Interpretation: Negative Thrive Assessment: Date of Thrive Assessment Date Thrive assessed 05/13/24 05/13/24 09:39 Currently or been in a relationship where the following occur: No concerns reported Coding Level of Care Code Est Pt Level 3 (29642) Diagnoses Morbid obesity E66.01 Dysfunction of both eustachian tubes H69.93 Laterality: bilateral Additional Codes RAKEL-7 Assessment Billing - RAKEL-7 Assessment Tool: RAKEL-7 Assessment 67637 ([id number]) PHQ-9 - 89568 - PHQ-9 Billing: Yes ([id number]) Assessment & Plan Assessment & Plan (1) Morbid obesity: Code(s): E66.01 - Morbid (severe) obesity due to excess calories Category: Medical (2) ETD (eustachian tube dysfunction): Code(s): H69.90 - Unspecified Eustachian tube disorder, unspecified ear Category: Medical Qualifiers: Laterality: bilateral Qualified Code(s): H69.93 - Unspecified Eustachian tube disorder, bilateral Plan . - The patient is a 34-year-old female presenting with follow-up for obesity management. - She initiated semaglutide treatment in March and completed one month of therapy. - The patient reports no substantial weight loss and highlights the necessity of exercise in her regimen. - She also reports ear fullness. she was seen for that on may 07 at walk in clinic and nasal spray was given still have the feeling but getting better Problem List - Primary Obesity - Eustachian Tube Dysfunction Patient Instructions - Continue taking semaglutide at a dose of 0.25 mg. - Contact the office for dose adjustment to 0.5 mg after one month. - Maintain an active lifestyle and incorporate regular exercise into your routine. - Continue using the prescribed nasal spray as needed for ear fullness and headaches. - Monitor for any worsening symptoms, such as cough, green phlegm, or nausea, and seek care if they occur. - Book an appointment in six weeks for follow-up and evaluation of dosage adjustment and weight progress. - If needed for work absence, obtain a doctor's note for 05/07/14.
== END 2024-05-13 09:58 | disposition home or self-care (01) ==
PROVIDERS: PCP Internal Medicine; Visit Provider Internal Medicine
DX: H69.93 Unspecified Eustachian tube disorder, bilateral (principal); E66.01 Morbid (severe) obesity due to excess calories; Z68.41 Body mass index [BMI] 40.0-44.9, adult

== ENCOUNTER → 2024-05-13 09:29 | Outpatient (BNVA) | payer OTHER, SELFPAY | PROVIDERS: PCP Internal Medicine; Visit Provider Internal Medicine | DX: E66.01 Morbid (severe) obesity due to excess calories (principal); Z68.41 Body mass index [BMI] 40.0-44.9, adult; H69.93 Unspecified Eustachian tube disorder, bilateral; Z79.899 Other long term (current) drug therapy | CPT/HCPCS: 96127 ==

== ENCOUNTER 2024-12-28 12:25 | Outpatient (AMB) | payer OTHER, SELFPAY ==
--- NOTE | 2024-12-28 12:27 | A.OFFPC_ITS ---
Vital Signs 12/28/24 12:28 Height 5 ft 1 in Weight 229 lb BMI 43.3 BP 126/70 Blood Pressure Location Lt brachial Position Sitting Pulse 102 H Pulse Source Pulse Oximeter Pulse Oximetry (%) 99 Oxygen Delivery Method Room Air Intake Visit Reasons: Annual Visit Cover Marker Required: No Accompanied by: Self / Same As Patient Allergies phentermine Adverse Reaction (Intermediate, Verified 12/28/24 12:28) Palpitations Medication List - Last Reconciled 12/28/24 by Yin Hayes MD levonorgestrel (Liletta) intrauterine Tobacco use date assessed: 05/13/24 Dental Screening Dental Screen Date: 12/28/24 Did you have a dental visit in the last 12 months?: Yes Did you have a dental problem in the last 6 months where you did not have access to dental care?: No Was dental information given to patient?: Patient has dentist HPI Annual Visit HPI Details History of Present Illness The patient is a 34-year-old female presenting for a wellness visit Morbid Obesity: - Body Mass Index (BMI) is elevated at 4 3.3, indicating morbid obesity. - Past history and patterns of weight ga in not discussed. - No history of prior weight management strategies mentioned. Hyperlipidemia: - Previously tested cholesterol levels r eveal LDL at 147, indicating high cholesterol. - Hyperlipidemia management discussed in cluding dietary adjustments. Vitamin D Deficiency: - Previous blood tests indicate low Giuliana min D levels. - Symptoms associated with deficiency in clude possible tiredness. - Discussion included taking Vitamin D s upplements, 7081-8425 IU. Intrauterine Device (IUD) in place: - Patient currently has an IUD for contr aception. - No complications with the IUD were rep orted, but regular annual check-ups were advised. Medical History: - Morbid Obesity - Hyperlipidemia - Vitamin D Deficiency Diagnostic results - Labs: Previous testing indicated hyper lipidemia with LDL at 147; Vitamin D deficiency noted. - Tests: None discussed Patient Instructions - Call OBGYN to schedule an annual check -up for IUD placement review. - Monitor dietary intake to manage thomas sterol levels. - Take Vitamin D supplements as advised, between 1000 and 2000 IU. - Scheduled for fasting labs to recheck cholesterol and other parameters. - Received flu vaccine and advised to co ntinue annual vaccinations. Review of Systems - General: No fever no chills - Neurological: No headaches no dizzin ess - Ear nose throat: No sore throat no hearing difficulty no ear pain - Cardiovascular: No syncope, no chest pain, no palpitations - Gastrointestinal: No nausea vomiting or diarrhea - Endocrine: No polyuria polydipsia no heat intolerance - Genitourinary: No dysuria - Skin: No new complaints Physical Exam General: Cooperative, healthy appearing, comfortable, no acute distress Orientation: Patient oriented x3 Head: Normal to inspection Ears: Within normal limit visually Nose: Normal external nose present Face and sinus: Normal facial exam Eyes: Appearance normal, extraocular movement intact pupils reactive Neck: Normal visual inspection and supple Respiratory: Normal respiratory effort and able to speak in complete sentences. Clear to auscultation, no stridor Cardiovascular: S1 and S2 RRR Breast exam benign GI: Normal to inspection. Soft to palpation and nontender Skin: turgor normal, no acute findings Neuro: Patient oriented x3, motor sensory intact, balance intact, tandem pass Extremities: Normal to inspection, range of motion intact Patient was informed and verbally consented to the use of an ambient scribe for clinic note documentation during this visit. [facility] Medical History Depression Morbid obesity Hyperthyroidism Tachycardia Encounter for general adult medical examination with abnormal findings Surgical History History of section Family History Father Cancer Mother HTN (hypertension) Depression Maternal Grandfather No problems noted. Maternal Grandmother No problems noted. Paternal Grandfather No problems noted. Paternal Grandmother No problems noted. Brother No problems noted. Daughter No problems noted. Sister No problems noted. Sister No problems noted. Sister No problems noted. Other Mental health disorder Social History Housing: House Alcohol intake: current Alcohol intake frequency: holidays/special occasions only Patient Tobacco Use Status: Never used Tobacco e-Cigarette/Vaping Use: Never Used Second Hand Smoke Exposure: Yes Current occupational status: employed Cognitive needs: No Hearing needs: No Vision needs: Yes Female Reproductive History Menstrual Age of Menarche: 12 Questionnaire PHQ-9 Over the last 2 weeks, how often have you been bothered by any of the following problems? 1. Little interest or pleasure in doing things: not at all 2. Feeling down, depressed, or hopeless: not at all 3. Trouble falling or staying asleep, or sleeping too much: not at all 4. Feeling tired or having little energy: several days 5. Poor appetite or overeating: several days 6. Feeling bad about yourself - or that you are a failure or have let yourself or your family down: not at all 7. Trouble concentrating on things, such as reading the newspaper or watching television: several days 8. Moving or speaking so slowly that other people could have noticed. Or the opposite - being so fidgety or restless that you have been moving around a lot more than usual: not at all 9. Thoughts that you would be better off or of hurting yourself in some way: not at all Total score: 3 Depression Screening Interpretation: Negative Depression Screening Done: Yes 70937 - PHQ-9 Billing: Yes Source: Developed by Drs. Mahesh Edward, Selina Nieves, Michael Santos and colleagues, with an educational desiree from [employer]. Thrive Questionnaire Date Thrive assessed: 05/10/24 I am a: Patient What is your living situation today?: I have a steady place to live Within the past 12 months, did the food you bought not last and you didn't have the money to get more?: Never true Within the past 12 months, did you worry whether your food would run out before you got money to buy more?: Never true Do you have trouble paying for medicines?: No Do you have trouble getting transportation to medical appointments?: No Do you have trouble paying your heating and electricity bill?: No Do you have trouble taking care of your child, family member or friend?: No Do you have trouble with day-to-day activities such as bathing, preparing meals, shopping, managing finances, etc.?: No Are you currently unemployed and looking for a job?: I choose not to answer this question Are you interested in more education?: No Please select the resources that you would like help with: None Currently or been in a relationship where the following occur: No concerns reported THRIVE Score: 0 AUDIT C Alcohol Use Questionnaire (AUDIT-C) 1. How often do you have a drink containing alcohol?: Never 3. How often do you have six or more drinks on one occasion?: Never Total Score: 0 RAKEL-7 AMB Questionnaire RAKEL-7 Date RAKEL - 7 assessed: 05/13/24 Feeling nervous, anxious, or on edge: 1 = Several days Not being able to stop or control worryin = Several days Worrying too much about different things: 1 = Several days Trouble relaxin = Not at all Being so restless that it is hard to sit still: 0 = Not at all Becoming easily annoyed or irritable: 0 = Not at all Feeling afraid as if something awful might happen: 0 = Not at all Total RAKEL-7 score (0-4 normal; 5-9 mild; 10-14 moderate; 15-21 severe): 3 Source: Developed by Drs. Mahesh Edward, Selina Nieves, Michael Santos and colleagues, with an educational desiree from [employer]. RAKEL-7 Assessment Billing RAKEL-7 Assessment Tool: RAKEL-7 Assessment 72419 Physical exam (Primary Care) Vital Signs: Last Vital Signs Pulse 102 H 12/28/24 12:28 BP 126/70 12/28/24 12:28 Pulse Ox 99 12/28/24 12:28 Oxygen Delivery Method Room Air 12/28/24 12:28 BMI result Body Mass Index 43.3 Tobacco/Smoking Status: Tobacco use Status Tobacco use date assessed 05/13/24 12/28/24 12:28 Patient Tobacco Use Status Never used Tobacco 12/28/24 12:28 e-Cigarette/Vaping Use Never Used 12/28/24 12:28 PHQ-9: PHQ-9 Score PHQ-9: Total score 3 12/28/24 12:58 Depression Screening Interpretation: Negative Thrive Assessment: Date of Thrive Assessment Date Thrive assessed 05/10/24 12/28/24 12:28 Currently or been in a relationship where the following occur: No concerns reported Office Procedures Flu Questionnaire Does the patient have a severe egg allergy?: No Does the patient have severe life threatening allergies?: No Does the patient have a fever or illness today?: No Has the patient ever had Guillain-[place] Syndrome?: No Has the patient ever had any past reaction to a flu shot?: No Immunizations Fluarix [id number] (PF) 45 mcg (15 mcg x 3)/0.5 mL IM syringe Performing Provider: Yin Hayes MD Performing Location: [facility] Administered by: Maribeth Mujica CMA on 12/28/24 12:57 Dose Route Admin Location Dispensed Lot Number Expiration Date NDC [employer] 0.5 mL IM Right Deltoid 0.5 mL [id number] 10/03/25 [id number] [employer] VIS Given Date VIS Provided VIS Publication Date 12/28/24 Single Vaccine 24 Eligibility Eligibility Date Funding Source Not [facility] Eligible 12/28/24 Private Coding Level of Care Code Est Pt Level 3 (45605) Est Pt Prev Care 18-39y(34763) Diagnoses Encounter for general adult medical examination with abnormal findings Z00.01 Tired R53.83 Morbid obesity E66.01 Vitamin D deficiency E55.9 Immunizations incomplete Z28.39 Additional Codes PHQ-9 - 17834 - PHQ-9 Billing: Yes ([id number]) RAKEL-7 Assessment Billing - RAKEL-7 Assessment Tool: RAKEL-7 Assessment 47839 ([id number]) Assessment & Plan Assessment & Plan (1) Encounter for general adult medical examination with abnormal findings: Code(s): Z00.01 - Encounter for general adult medical examination with abnormal findings Category: Medical (2) Tired: Code(s): R53.83 - Other fatigue Category: Medical (3) Morbid obesity: Code(s): E66.01 - Morbid (severe) obesity due to excess calories Category: Medical (4) Vitamin D deficiency: Code(s): E55.9 - Vitamin D deficiency, unspecified Category: Medical (5) Immunizations incomplete: Code(s): Z28.39 - Other underimmunization status Category: Medical Plan History of Present Illness The patient is a 34-year-old female presenting for a wellness visit Morbid Obesity: - Body Mass Index (BMI) is elevated at 43.3, indicating morbid obesity. - Past history and patterns of weight gain not discussed. - No history of prior weight management strategies mentioned. Hyperlipidemia: - Previously tested cholesterol levels reveal LDL at 147, indicating high cholesterol. - Hyperlipidemia management discussed including dietary adjustments. Vitamin D Deficiency: - Previous blood tests indicate low Vitamin D levels. - Symptoms associated with deficiency include possible tiredness. - Discussion included taking Vitamin D supplements, 1559-7643 IU. Intrauterine Device (IUD) in place: - Patient currently has an IUD for contraception. - No complications with the IUD were reported, but regular annual check-ups were advised. Medical History: - Morbid Obesity - Hyperlipidemia - Vitamin D Deficiency Diagnostic results - Labs: Previous testing indicated hyperlipidemia with LDL at 147; Vitamin D deficiency noted. - Tests: None discussed Patient Instructions - Call OBGYN to schedule an annual check-up for IUD placement review. - Monitor dietary intake to manage cholesterol levels. - Take Vitamin D supplements as advised, between 1000 and 2000 IU. - Scheduled for fasting labs to recheck cholesterol and other parameters. - Received flu vaccine and advised to continue annual vaccinations. Orders: Orders Comprehensive [place]. Panel Fast Today E55.9 - Vitamin D deficiency, unspecified, E66.01 - Morbid (severe) obesity due to excess calories, R53.83 - Other fatigue, Z00.01 - Encounter for general adult medical examination with abnormal findings, Z28.39 - Other underimmunization status Influenza [id number] Immunization Today Z23 - Encounter for immunization Complete Blood Count Auto Diff Today E55.9 - Vitamin D deficiency, unspecified, E66.01 - Morbid (severe) obesity due to excess calories, R53.83 - Other fatigue, Z00.01 - Encounter for general adult medical examination with abnormal findings, Z28.39 - Other underimmunization status Lipid Panel Today E55.9 - Vitamin D deficiency, unspecified, E66.01 - Morbid (severe) obesity due to excess calories, R53.83 - Other fatigue, Z00.01 - Encounter for general adult medical examination with abnormal findings, Z28.39 - Other underimmunization status Vitamin D 25-OH (D2 and D3) Today E55.9 - Vitamin D deficiency, unspecified, E66.01 - Morbid (severe) obesity due to excess calories, R53.83 - Other fatigue, Z00.01 - Encounter for general adult medical examination with abnormal findings, Z28.39 - Other underimmunization status TSH reflex Free T4 Today E55.9 - Vitamin D deficiency, unspecified, E66.01 - Morbid (severe) obesity due to excess calories, R53.83 - Other fatigue, Z00.01 - Encounter for general adult medical examination with abnormal findings, Z28.39 - Other underimmunization status
[2024-12-28 12:28] VITALS: BP 126/70; PULSE 102; O2SAT 99; BMI 43.3
== END 2024-12-28 13:04 | disposition home or self-care (01) ==
LOC: HO.HMCC 12:26
PROVIDERS: PCP Internal Medicine; Visit Provider Internal Medicine
DX: Z00.01 Encounter for general adult medical examination with abnormal findings (principal); R53.83 Other fatigue; E66.01 Morbid (severe) obesity due to excess calories; Z68.41 Body mass index [BMI] 40.0-44.9, adult; E55.9 Vitamin D deficiency, unspecified; Z28.39 Other underimmunization status; Z23 Encounter for immunization

== ENCOUNTER → 2024-12-28 12:25 | Outpatient (BNVA) | payer OTHER, SELFPAY | PROVIDERS: PCP Internal Medicine; Visit Provider Internal Medicine | DX: Z00.01 Encounter for general adult medical examination with abnormal findings (principal); E66.01 Morbid (severe) obesity due to excess calories; E78.5 Hyperlipidemia, unspecified; E55.9 Vitamin D deficiency, unspecified; Z68.41 Body mass index [BMI] 40.0-44.9, adult; Z23 Encounter for immunization; R53.83 Other fatigue | CPT/HCPCS: 90471; 90656; 96127 ==